=== PATIENT | male | born 1980 | race Caucasian/White ===

== ENCOUNTER 2017-10-18 07:51 | Emergency (ER) | payer OTHER ==
[~2017-10-18] VITALS: Ht 180.3 cm; Wt 91.6 kg
[2017-10-18 07:58] VITALS: BP 149/91
--- NOTE | 2017-10-18 08:24 | PHYS DOC ---
Past History Past Medical History: GERD Past Surgical History: No Surgical History Smoking: Non-smoker Alcohol Use: Occasionally Drug Use: None Adult General Chief Complaint Chief Complaint: BACK INJURY HPI HPI 37-year-old male patient state he injured his back while playing ice hockey last night. Patient states he had a bad movement and pulled right upper back muscle and after few more minutes of playing, had to stop playing because of the pain. Patient states he applied ice and lidocaine patch and took ibuprofen 800 mg last night with partial improvement of pain and was able to sleep but this morning his pain became worse. Patient rates his pain 6/10 and denies radiation of pain, focal neuro deficit, other injuries and history of back pain. Review of Systems Review of Systems Constitutional: Denies fever or chills [] Eyes: Denies change in visual acuity, redness, or eye pain [] HENT: Denies nasal congestion or sore throat [] Respiratory: Denies cough or shortness of breath [] Cardiovascular: No additional information not addressed in HPI [] GI: Denies abdominal pain, nausea, vomiting, bloody stools or diarrhea [] : Denies dysuria or hematuria [] Musculoskeletal: Reports back pain or joint pain [] Integument: Denies rash or skin lesions [] Neurologic: Denies headache, focal weakness or sensory changes [] Endocrine: Denies polyuria or polydipsia [] All other systems were reviewed and found to be within normal limits, except as documented in this note. Current Medications Current Medications Current Medications Medications (Trade) Dose Ordered Sig/Bharati Start Time Stop Time Status Last Admin Dose Admin Cyclobenzaprine HCl (Flexeril) 10 mg 1X ONCE 10/18/17 08:30 10/18/17 08:31 10/18/17 08:16 10 MG Ketorolac Tromethamine (Toradol) 60 mg 1X ONCE 10/18/17 08:30 10/18/17 08:31 10/18/17 08:16 60 MG Allergies Allergies Allergies Coded Allergies Type Severity Reaction Last Updated Verified No Known Drug Allergies 10/18/17 No Physical Exam Physical Exam Constitutional: Well developed, well nourished, mild distress, non-toxic appearance. [] HENT: Normocephalic, atraumatic Eyes: PERRLA, EOMI, conjunctiva normal, no discharge. [] Neck: Normal range of motion, no tenderness, supple, no stridor. [] Cardiovascular:Heart rate regular rhythm, no murmur [] Lungs & Thorax: Bilateral breath sounds clear to auscultation [] Abdomen: Bowel sounds normal, soft, no tenderness, no masses, no pulsatile masses. [] Skin: Warm, dry, no erythema, no rash. [] Back: No deformity or midline tenderness, right thoracic and upper lumbar spasm and tenderness with limited range of motion secondary to pain Extremities: No tenderness, no cyanosis, no clubbing, ROM intact, no edema. [] Neurologic: Alert and oriented X 3, normal motor function, normal sensory function, no focal deficits noted. [] Psychologic: Affect normal, judgement normal, mood normal. [] Current Patient Data Vital Signs Vital Signs Date Time Temp Pulse Resp B/P (MAP) Pulse Ox O2 Delivery O2 Flow Rate FiO2 10/18/17 07:58 98.0 72 16 98 Room Air EKG EKG [] Radiology/Procedures Radiology/Procedures [] Course & Med Decision Making Course & Med Decision Making Evaluation of patient in ER showed 37-year-old male patient with pulling lumbar muscle last night during sport without bone injury. Patient treated in ER with Toradol and Flexeril and ice wrap applied and felt better. Plan discharge patient home with diagnosis of lumbar myofascial strain. Dragon Disclaimer [place] Disclaimer This electronic medical record was generated, in whole or in part, using a voice recognition dictation system. Departure Departure: Impression: Primary Impression: Acute myofascial strain of lumbar region Disposition: HOME, SELF-CARE (At 0830) Condition: IMPROVED Referrals: RADHA AGRAWAL (PCP) Patient Instructions: Lumbosacral Strain Additional Instructions: Apply ice on the affected area Follow-up with your primary care physician in 3-5 days Return to ER if not getting better Scripts Ibuprofen (IBUPROFEN) 800 Mg Tablet 1 TAB PO TID, #30 TAB Prov: ELENA ENGEL MD 10/18/17 Cyclobenzaprine Hcl (CYCLOBENZAPRINE HCL) 10 Mg Tablet 1 TAB PO TID, #30 TAB Prov: ELENA ENGEL MD 10/18/17 Hydrocodone Bit/Acetaminophen (NORCO 5-325 TABLET) 1 Each Tablet 1 TAB PO PRN Q6HRS Y for PAIN, #14 TAB 0 Refills Prov: ELENA ENGEL MD 10/18/17 ELENA ENGEL MD Oct 18, 2017 08:24
[2017-10-18] MEDS ORDERED: KETOROLAC 60 MG/2 ML VIAL. IM ONE (08:30)
[2017-10-18] MEDS ORDERED: CYCLOBENZAPRINE 10 MG TABLET. PO ONE (08:30)
[2017-10-18] MEDS ORDERED: CYCL-331 PO (08:33)
[2017-10-18] MEDS ORDERED: IBUP800T19 PO (08:33)
[2017-10-18] MEDS ORDERED: HYDR-971 PO (08:33)
== END 2017-10-18 08:44 | disposition home or self-care (01) ==
LOC: ER 07:51
DX: S39.012A Strain of muscle, fascia and tendon of lower back, initial encounter (principal); M54.6 Pain in thoracic spine; K21.9 Gastro-esophageal reflux disease without esophagitis; X50.9XXA Other and unspecified overexertion or strenuous movements or postures, initial encounter; Y93.22 Activity, ice hockey; Y99.8 Other external cause status; Y92.89 Other specified places as the place of occurrence of the external cause
CPT/HCPCS: 96372; 99283; J1885